=== PATIENT | female | born 1940 | race Caucasian/White ===

== ENCOUNTER 2022-09-22 07:43 | Observation (INO) | payer OTHER, MEDICARE ==
[2022-09-22] MEDS ORDERED: SODIUM CHLORIDE 1,000 ML IV STA (09:11)
[2022-09-22] MEDS ORDERED: ACETAMINOPHEN 1000 MG/100 ML BAG IVPB ONE (09:32)
[2022-09-22] MEDS ORDERED: ACETAMINOPHEN INJECTION 100 ML IVPB ONE (09:42)
[2022-09-22 10:31] LABS: BASO % 0.5 % (0-2.0); EOS % 0.2 % (0-4.5); HEMATOCRIT 40.7 % (32.4-45.2); HEMOGLOBIN 13.7 GM/dL (10.7-15.3); INR 1.02 (0.83-1.09); LYMPH % 9.7 % (8-40); MCH 31.4 pg (25.7-33.7); MCHC 33.8 g/dl (32.0-36.0); MEAN CELL VOLUME 92.9 fl (80-96); MEAN PLT VOLUME 9.4 fl (7.5-11.1); MONO % 8.2 % (3.8-10.2); NEUT % 81.4 % (42.8-82.8); PLATELET COUNT 234 10^3/uL (134-434); PROTHROMBIN TIME (PATIENT) 11.8 SEC (9.7-13.0); RBC 4.37 M/mm3 (3.60-5.2); RDW 14.6 % (11.6-15.6); WHITE BLOOD COUNT 7.7 K/mm3 (4.0-10.0)
[2022-09-22 10:34] LABS: ACTIVATED PTT 30.3 SECONDS (25.2-36.5)
[2022-09-22 10:50] LABS: ALBUMIN 3.9 g/dl (3.4-5.0); BLOOD UREA NITROGEN 17.4 mg/dL (7-18); CALCIUM 9.6 mg/dL (8.5-10.1); LACTIC ACID 2.3 mmol/L (0.4-2.0)
[2022-09-22 10:55] LABS: BILIRUBIN,TOTAL 0.5 mg/dL (0.2-1); TOT PROT 7.6 g/dl (6.4-8.2)
[2022-09-22] MEDS ORDERED: VANCOMYCIN 1 GM in D5W (PRE-DOCKED) 1,000 MG/250 ML IVPB ONE (11:12)
[2022-09-22] MEDS ORDERED: VANCOMYCIN/WATER FOR INJ (PEG) 1,000 MG/200 ML BAG IVPB ONE (11:15)
[2022-09-22] MEDS: LINEZOLID 600 MG PREMIX BAG 600 MG/300 ML BAG IVPB SCH (18:01)
[2022-09-22] MEDS ORDERED: ACETAMINOPHEN 500 MG TABLET (FP) PO PRN (19:08)
[2022-09-22] MEDS: ROSUVASTATIN CA 10 MG TABLET PO SCH (23:10)
[2022-09-22] MEDS: NYSTATIN 100,000 UNIT/GM TOPICAL CREAM 15 GM TUBE TP SCH (23:11)
[2022-09-22 23:24] VITALS: BMI 20.9
[2022-09-23] MEDS ORDERED: MELATONIN 5 MG TABLETS PO PRN (02:08)
[2022-09-23] MEDS: LINEZOLID 600 MG PREMIX BAG 600 MG/300 ML BAG IVPB SCH (07:04)
[2022-09-23] MEDS ORDERED: metoPROLOL SUCCINATE 25 MG TAB.SR.24H (FP) PO SCH (10:00)
[2022-09-23] MEDS ORDERED: ASPIRIN COATED 81 MG TABLET.EC PO SCH (10:00)
[2022-09-23] MEDS: NYSTATIN 100,000 UNIT/GM TOPICAL CREAM 15 GM TUBE TP SCH (10:08)
[2022-09-23] MEDS: ROSUVASTATIN CA 10 MG TABLET PO SCH (10:10)
[2022-09-23 11:07] VITALS: RESP 18; TEMP 98.2
[2022-09-23 13:50] VITALS: BP 159/86; PULSE 88
== END 2022-09-23 15:12 | disposition home or self-care (01) ==
LOC: JER 07:43 → JERBED 11:46 → UNDOADMOB 11:46 → INTOOBSV 11:46 → JERBED 12:02 → J7W 20:17
PROVIDERS: ADMIT Internal Medicine; ATTEND Internal Medicine
PROC: 3E033GC Introduction of Other Therapeutic Substance into Peripheral Vein, Percutaneous Approach (ICD-10-PCS; principal; 2022-09-22)
PROC: 3E03329 Introduction of Other Anti-infective into Peripheral Vein, Percutaneous Approach (ICD-10-PCS; 2022-09-22)
PROC: 3E0337Z Introduction of Electrolytic and Water Balance Substance into Peripheral Vein, Percutaneous Approach (ICD-10-PCS; 2022-09-22)
DX: L03.115 Cellulitis of right lower limb (principal); Z88.8 Allergy status to other drugs, medicaments and biological substances; J30.1 Allergic rhinitis due to pollen; I25.10 Atherosclerotic heart disease of native coronary artery without angina pectoris; I24.9 Acute ischemic heart disease, unspecified
CPT/HCPCS: 36415; 73630-TC-RT-FY; 80053; 83605; 85025; 85610; 85730; 87040; 87070; 87205; 93005; 93010; 93971-TC; 96361; 96365; 96375; 99285-25; C9803-CS; G0378; U0003; U0005